=== PATIENT | female | born 1930 | race Caucasian/White ===

== ENCOUNTER 2017-02-12 11:19 | Inpatient (IN) ==
[2017-02-12] MEDS ORDERED: PANTOPRAZOLE 40 MG VIAL IV STA (11:37)
[2017-02-12] MEDS ORDERED: PANTOPRAZOLE 40 MG VIAL IV ONE (11:43)
[2017-02-12 11:44] LABS: Basophils % 0.4 % (0.0-0.8); Eosinophils # 0.1 10*3/uL (0.0-0.87); Eosinophils % 1.1 % (0.00-10.9); Hematocrit 29.2 VOL% (35.7-47.0); Hemoglobin 9.5 GM/DL (12.0-16.0); Immature Granulocytes % 0.4 %; Immature Granulocytes Absolute 0.03 #; Lymphocytes # 1.5 10*3/uL (1.4-4.0); Lymphocytes % 19.6 % (21.3-54.2); Mean Corpuscular HGB Conc 32.5 GM/DL (32-36); Mean Corpuscular Hemoglobin 32 PG (27-34); Mean Corpuscular Volume 97.7 FL (87-102); Monocytes # 0.6 10*3/uL (0.11-0.8); Monocytes % 7.8 % (1.7-12.7); Neutrophils # 5.4 10*3/uL (1.4-7.4); Neutrophils % 70.7 % (38.7-73.9); Platelet Count 160 T/CUMM (130-400); Red Blood Count 2.99 MC/CUMM (3.8-5.5); Red Cell Distribution Width 13.2 % (9.3-17.3); White Blood Count 7.6 T/CUMM (4-12)
[2017-02-12 11:53] LABS: INR 1.1; PT Patient Result 12.1 SECS
[2017-02-12] MEDS ORDERED: ONDANSETRON 4 MG/2 ML VIAL IV STA (11:58)
[2017-02-12] MEDS ORDERED: ONDANSETRON 4 MG/2 ML VIAL ONE ×2 (12:05→13:54)
[2017-02-12 12:21] LABS: Alanine Aminotransferase 16 U/L (13-56); Albumin 3.5 G/DL (3.4-5.0); Alkaline Phosphatase 69 U/L (45-117); Aspartate Amino Transferase 19 U/L (0-37); Bilirubin,Direct < 0.10 MG/DL (0.0-0.20); Bilirubin,Indirect 0.3 MG/DL (0.0-1.0); Bilirubin,Total < 0.39 MG/DL (0.2-1.0); Blood Urea Nitrogen 25 MG/DL (7-18); Calcium 8.2 MG/DL (8.5-10.1); Glucose 114 MG/DL (74-106); Osmolality,Calculated 283.4 MOS/KG (273-304); Potassium 4.4 MMOL/L (3.5-5.1); Sodium 140 MMOL/L (136-145); Total Protein 6.4 G/DL (6.4-8.3)
--- NOTE | 2017-02-12 13:01 | Ultrasound Report ---
History: Left leg swelling Date: 02/12/2017 Study: Left lower extremity color-flow venous Doppler study Comparison exam: May 20, 2016 Color Doppler, wave form analysis, and compression analysis of the deep veins of the left lower extremity from the common femoral vein level through the popliteal vein level shows that the veins are readily compressible. There is no abnormal intraluminal material to suggest thrombus. Waveform analysis is unremarkable. Ultrasound images were captured and archived Impression: Normal left lower extremity color flow venous Doppler study. No evidence of acute DVT on the left PROCEDURE INTERPRETED AT [facility] DEPARTMENT OF RADIOLOGY Final Report Signed by: Dr. Jerri Heller
--- NOTE | 2017-02-12 13:15 | XRay Report ---
History: Vomiting blood. Epigastric pain Date: 02/12/2017 Study: Flat and erect abdomen Comparison exam: No previous similar There is no evidence of pneumoperitoneum. The bowel gas pattern is nonobstructive. Some scattered stool and air are noted in the normal caliber colon. Surgical clips from previous cholecystectomy overlie the right upper abdomen. No definite radiopaque calculus is seen. There is moderate thoracolumbar levoscoliosis. Radiopaque cement from previous kyphoplasty overlies the upper L1 vertebral body. Impression: No acute abdominal process PROCEDURE INTERPRETED AT [facility] DEPARTMENT OF RADIOLOGY Final Report Signed by: Dr. Jerri Heller
--- NOTE | 2017-02-12 13:18 | XRay Report ---
History: Abdominal pain. Nausea, vomiting, diarrhea Date: 02/12/2017 Study: Chest x-ray PA and lateral Comparison exam: August 04, 2009 There is cardiomegaly. There is no mediastinal mass. The pulmonary vasculature is upper normal. There is no pleural effusion. A left subclavian dual-lead transvenous pacemaker is intact and generally stable in position. The lungs are well-expanded to slightly hyperexpanded without acute infiltrate. There is parenchymal and pleural scarring in either lung apex. There is osteopenia and thoracic spondylosis. Impression: The lungs are slightly hyperexpanded as can be seen with COPD. Cardiomegaly without overt CHF. Chronic lung changes otherwise. Pacemaker as before PROCEDURE INTERPRETED AT [facility] DEPARTMENT OF RADIOLOGY Final Report Signed by: Dr. Jerri Heller
[2017-02-12] MEDS ORDERED: ONDANSETRON 4 MG/2 ML VIAL IV PRN (13:50)
[2017-02-12] MEDS ORDERED: ACETAMINOPHEN 325 MG TABLET PO PRN (13:50)
--- NOTE | 2017-02-12 13:50 | Emergency Department Note ---
IMarisel Emily, am scribing for, and in the presence of, Allan Mejia M.D. 12 :00. IJackie Howard T, M.D., personally performed the services described in this documentation, ascribed by Terra Joiner in my presence, and it is both accurate and complete [id number] . Arrival - Arrival Chief Complaint: Nausea/Vomiting/Diarrhea ED Nursing Triage Note: Brought in by EMS c/o vomiting blood that started this morning. Reports vomiting large, bright red clots. Mode of Arrival: Stretcher Limitations: No Limitations Source: Patient - History of Present Illness HPI Narrative: Pt is a 86 y/o female who came to ED with c/o hematemesis that started this morning when getting ready for tenriism. Pt notes "funny feeling" in abdomen and bent over when hematemesis started in gross amounts and had clots. Pt only ate a breakfast bar this morning at 7, and taken medications starting at 4am today. In the past couple weeks, pt has some GERD with choking, but under Dr. Heller which seen years ago not recently. Pt reports last night having mild SOB and swelling LLE. She takes ASA daily. Pt notes having constipation this morning and has hemorrhoids but just eats prunes. 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 Onset (ago): hour(s) Consistency: intermittent Severity: mild, moderate Severity scale (1-10): 4 Quality: other (nauseating) Date of Last Menstrual Period: hysterectomy Allergies/Adverse Reactions: Allergies Allergy/AdvReac Type Severity Reaction Status Date / Time adhesive tape Allergy RASH Verified 02/12/17 11:34 Review of System - Review of System 12 point system: reviewed and no additional remarkable complaints except as stated - Review of System Constitutional: Absent: fever Respiratory: Absent: respiratory distress Cardiovascular: Present: edema (left lower extremity). Absent: chest pain, syncope Gastrointestinal: Present: abdominal pain ("funny feeling"), nausea, constipation (mild this morning), hematemesis. Absent: diarrhea Skin: Absent: rash Neurological: Absent: headache Medical,Surgical,& Family Hx - Medical History Cardio: History of: Hypertension, Pacemaker - Surgical History Reproductive Surgeries: Surgical HX of;: Hysterectomy - Family History Family History: noncontributory - Social History Smoking Status: Never smoker Frequency of Alcohol Use: None Type of Drug Use: None Marital Status: Single Lives With:: Alone Functional capacity: independent ambulation Exam Vital Signs: Vital Signs Temperature 99.8 F H 02/12/17 11:30 Pulse Rate 100 H 02/12/17 13:15 Respiratory Rate 20 02/12/17 13:15 Blood Pressure 137/95 02/12/17 13:15 O2 Sat by Pulse Oximetry 100 02/12/17 13:15 - General General appearance: alert, in no apparent distress - Head Head exam: Present: atraumatic, normocephalic - Eye Eye exam: Present: PERRL, EOMI - ENT ENT exam: Present: mucous membranes moist. Absent: mucous membranes dry - Neck Neck exam: Present: full ROM. Absent: tenderness - Chest Chest inspection: Present: symmetric chest wall rise. Absent: tenderness - Respiratory Respiratory exam: Present: normal lung sounds bilaterally. Absent: respiratory distress - Cardiovascular Cardiovascular exam: Present: regular rate, normal rhythm, normal heart sounds - Abdominal Exam Abdominal exam: Present: soft, normal bowel sounds. Absent: tenderness - Extremities Exam Extremities exam: Present: full ROM, pedal edema (swelling in LLE). Absent: tenderness - Neurological Exam Neurological exam: Present: alert, oriented X3, CN II-XII intact. Absent: motor sensory deficit - Psychiatric Psychiatric exam: Present: normal mood - Skin Skin exam: Present: warm, dry Course Course Narrative: Medical decision making: Discussed with Dr. Alexandra for admission and GI consultation for vomiting blood, patient at this point appears stable no acute distress. Results - Labs CBC & BMP: 02/12/17 11:38 02/12/17 11:38 Lab Results: I have reviewed the patients labs Labs: Laboratory Tests 02/12/17 11:38 WBC 7.6 RBC 2.99 L Hgb 9.5 L Hct 29.2 L Plt Count 160 Lymph % (Auto) 19.6 L Laboratory Tests 02/12/17 11:38 Sodium 140 Potassium 4.4 Chloride 102 Carbon Dioxide 32 BUN 25 H BUN/Creatinine Ratio 31.00 H Glucose 114 H Calcium 8.2 L - Diagnostic Findings Procedure: Abdominal x-ray: report reviewed by me (No acute abdominal process. ) , Chest x-ray: report reviewed by me (The lungs are slightly hyperexpanded as can be seen with COPD. Cardiomegaly without overt CHF. Chronic lungs changes otherwise. Pacemaker as before.), Ultrasound: report reviewed by me (Venous Doppler: Nml LLE color flow venous Doppler study. No evidence of acute DVT on the left.) Disposition Clinical Impression: Upper GI bleed, Hematemesis Case discussed with: patient Disposition: Still a Patient Condition: Stable Time of Disposition: 13:50
[2017-02-12] MEDS ORDERED: SODIUM CHLORIDE 0.45% 1,000 ML IV SCH (14:00)
[2017-02-12] MEDS: FAMOTIDINE 20 MG/2 ML VIAL IV SCH (15:15)
--- NOTE | 2017-02-12 17:59 | Internal Med History&Physical ---
Assessment and Plan (1) Osteoarthritis Status: Chronic Current Visit: Yes Qualifiers: Osteoarthritis location: multiple joints Osteoarthritis type: primary Qualified Code(s): M15.0 - Primary generalized (osteo)arthritis (2) Upper GI bleed Status: Acute Current Visit: Yes (3) Hematemesis Status: Acute Current Visit: Yes Qualifiers: Nausea presence: with nausea Qualified Code(s): K92.0 - Hematemesis; R11.0 - Nausea (4) Hypertension Status: Chronic Current Visit: Yes Qualifiers: Hypertension type: essential hypertension Qualified Code(s): I10 - Essential (primary) hypertension History of Present Illness Chief complaint: acute upper GI bleed/vomiting History of present illness: Ms. Mendiola is a 86 year old female with history of OA, peripheral neuropathy, HTN, hypothyroid, pacemaker placement for bradycardia, who presented to ER with acute upper GI bleed that began this morning. She has been vomiting intermittently since first vomiting blood early today. Volume of vomitus has decreased throughout the day. She denies diarrhea or constipation. Will follow CBCs. Dr. Heller has been consulted for further investigation. She has osteoarthritic pain intermittently and has taken OTC NSAIDs more frequently than she realized. Home Medications Medication Instructions Recorded Confirmed Type Aspirin EC Tab 81 mg PO DAILY 02/12/17 02/12/17 History Atenolol 25 mg PO BID 02/12/17 02/12/17 History Clorazepate Dipotassium 1.875 mg PO BID 02/12/17 02/12/17 History Furosemide Tab [Lasix Tab] 40 mg PO DAILY 02/12/17 02/12/17 History Gabapentin 100 mg PO BID 02/12/17 02/12/17 History Levothyroxine Tab [Synthroid Tab] 88 mcg PO DAILY 02/12/17 02/12/17 History Allergies Allergy/AdvReac Type Severity Reaction Status Date / Time adhesive tape Allergy RASH Verified 02/12/17 11:34 Medical,Surgical,& Family Hx - Medical History Cardio: History of: Hypertension, Pacemaker HEENT: History of: HEENT Problems (chochlear implant) Endocrine: History of: Thyroid Disorder (hypothyroid) Gastrointestinal: History of: GERD Hematology: History of: Anemia (iron deficiency) - Surgical History Abdominal Surgeries: Surgical HX of: Cholecystectomy Reproductive Surgeries: Surgical HX of;: Hysterectomy Orthopedic Surgeries: Surgical HX of;: Spinal Surgery (kyphoplasty) - Family History Family History: Reports;: Family Hypertension - Social History Smoking Status: Never smoker Frequency of Alcohol Use: None Type of Drug Use: None Marital Status: Lives With:: Alone Functional capacity: independent ambulation - Constitutional Constitutional: Absent: fatigue - Cardiovascular Cardiovascular: Absent: chest pain at rest - Respiratory Respiratory: Absent: dyspnea on exertion - Gastrointestinal Gastrointestinal: Present: hematemesis, hematochezia, nausea - Musculoskeletal Musculoskeletal: Present: arthralgias - Psychiatric Psychiatric: Absent: anxiety Exam - Constitutional Vitals: Period Temp Pulse Resp BP Sys/[place] Pulse Ox Last 24 Hr 97.5 F-99.8 F 94-106 16-20 116-162/60-95 94-100 General appearance: no acute distress - Head Head exam: Present: normocephalic - Eye Eye exam: Present: EOMI - Respiratory Respiratory exam: Present: clear to auscultation bilaterally. Absent: rales, rhonchi, wheezes - Cardiovascular Cardiovascular exam: Present: regular rate and rhythm - GI/Abdominal GI/Abdominal exam: Present: normal bowel sounds, soft. Absent: tenderness - Extremities Exam Extremities exam: Present: other (LLE redness and soreness to palpation). Absent: edema - Neurological Exam Neurological exam: Present: alert, oriented X3 - Psychiatric Psychiatric exam: Present: normal affect, normal mood - Skin Skin exam: Present: warm, dry Results - Labs CBC & BMP: 02/12/17 23:16 02/12/17 11:38 - EKG EKG shows: sinus rhythm - Diagnostic Findings Procedure: Abdominal x-ray: image reviewed by me, Chest x-ray: report reviewed by me, image reviewed by me Quality Measures - VTE Contraindication to Pharmacological VTE Prophylaxis: Active Bleeding
[2017-02-12] MEDS: SODIUM CHLORIDE 0.45% 1,000 ML IV SCH (18:50)
[2017-02-12] MEDS ORDERED: PROMETHAZINE 25 MG/1 ML VIAL IM PRN (18:54)
[2017-02-12 23:40] LABS: Hemoglobin 5.5 GM/DL (12.0-16.0)
[2017-02-12 23:41] LABS: Hematocrit 17.1 VOL% (35.7-47.0)
[2017-02-12] MEDS ORDERED: SODIUM CHLORIDE 0.9% 250 ML IV PRN (23:59)
[2017-02-13 00:21] LABS: Hemoglobin 5.7 GM/DL (12.0-16.0)
[2017-02-13 00:22] LABS: Hematocrit 17.6 VOL% (35.7-47.0)
[2017-02-13] MEDS: FAMOTIDINE 20 MG/2 ML VIAL IV SCH (04:02)
[2017-02-13] MEDS: ATENOLOL 25 MG TABLET PO SCH ×4 (04:05→21:30)
[2017-02-13] MEDS: CLORAZEPATE 3.75 MG TABLET PO SCH ×4 (04:05→21:30)
[2017-02-13] MEDS: GABAPENTIN 100 MG CAPSULE PO SCH ×4 (04:05→21:30)
[2017-02-13] MEDS ORDERED: PANTOPRAZOLE 40 MG VIAL IV SCH (09:00)
[2017-02-13] MEDS: cefTRIAXone 1,000 MG in SODIUM CHLORIDE 0.9% 100 ML IV SCH (09:14)
[2017-02-13] MEDS: SODIUM CHLORIDE 0.45% 1,000 ML IV SCH ×2 (09:17→17:55)
[2017-02-13] MEDS: LEVOTHYROXINE 88 MCG TABLET PO SCH ×2 (09:17→14:43)
[2017-02-13 09:26] LABS: Basophils % 0.5 % (0.0-0.8); Eosinophils # 0.1 10*3/uL (0.0-0.87); Eosinophils % 0.8 % (0.00-10.9); Hematocrit 23.5 VOL% (35.7-47.0); Hemoglobin 7.9 GM/DL (12.0-16.0); Immature Granulocytes % 0.4 %; Immature Granulocytes Absolute 0.03 #; Lymphocytes # 2.4 10*3/uL (1.4-4.0); Lymphocytes % 28.2 % (21.3-54.2); Mean Corpuscular HGB Conc 33.6 GM/DL (32-36); Mean Corpuscular Hemoglobin 32 PG (27-34); Mean Corpuscular Volume 93.6 FL (87-102); Mean Platelet Volume 11.1 FL (9.6-12.0); Monocytes # 0.7 10*3/uL (0.11-0.8); Monocytes % 8.8 % (1.7-12.7); Neutrophils # 5.2 10*3/uL (1.4-7.4); Neutrophils % 61.3 % (38.7-73.9); Platelet Count 146 T/CUMM (130-400); Red Blood Count 2.51 MC/CUMM (3.8-5.5); Red Cell Distribution Width 15.2 % (9.3-17.3); White Blood Count 8.4 T/CUMM (4-12)
[2017-02-13 10:00] LABS: Calcium 8.1 MG/DL (8.5-10.1); Osmolality,Calculated 291.8 MOS/KG (273-304); Potassium 4.5 MMOL/L (3.5-5.1)
--- NOTE | 2017-02-13 11:41 | Gastrointestinal Consult Note ---
Assessment and Plan (1) Upper GI bleed Status: Acute Assessment and plan: 02/13-Sudden onset of upper abd pain with hemetemesis followed by reported hematechezia. HH 5/ on admission. No prior hx of GI bleed in past. Prior endoscopy at [facility]. Plan for upper endoscopy today to further revaluate. Further plan and addendum to follow by Dr Heller. Current Visit: Yes History of Present Illness Chief complaint: Hematemesis and hematochezia History of present illness: Ms. Mendiola is a 86 year old female who was admitted to the hospital yesterday after sudden onset of hemetemesis. Pt states she was getting ready to go to sikhism and began not feeling well yesterday morning. She states that she had a pain in her epigastric area and shortly after this began vomiting bright red blood with dark clots. Pt states that she had several episodes of this before coming to the emergency room. She states that the weeks leading up to this event she has noticed she has had an increase in dyspepsia symptoms with belching and bloating as well as indigestion pain. She has also had some increasing dysphagia symptoms. She denies any episodes of nausea or vomiting prior to this. She denies any recent weight loss. States that approximately 3 months ago she hurt her back and was taking some NSAIDs more frequent than usual however she has not taken these in several weeks. She states that she has not noted any changes in her stools until after arrival to the ER yesterday when she had a sudden cramping in her lower abdomen and had a large bright red bloody bowel movement. She states she has had several of these since this time with last one noted last night. She was found on admission to have HH of 11/23 and has been transfused 2 units of PRBC with HH now holding at 01/29. She is also noted to have a BUN/Cr ratio of 45. She has had prior endoscopy done at [facility] by Dr Heller but does not recall a history of PUD in the past. Home Medications Medication Instructions Recorded Confirmed Type Aspirin EC Tab 81 mg PO DAILY 02/12/17 02/12/17 History Atenolol 25 mg PO BID 02/12/17 02/12/17 History Clorazepate Dipotassium 1.875 mg PO BID 02/12/17 02/12/17 History Furosemide Tab [Lasix Tab] 40 mg PO DAILY 02/12/17 02/12/17 History Gabapentin 100 mg PO BID 02/12/17 02/12/17 History Levothyroxine Tab [Synthroid Tab] 88 mcg PO DAILY 02/12/17 02/12/17 History Allergies Allergy/AdvReac Type Severity Reaction Status Date / Time adhesive tape Allergy RASH Verified 02/12/17 11:34 Medical,Surgical,& Family Hx - Medical History Cardio: History of: Hypertension, Pacemaker HEENT: History of: HEENT Problems (chochlear implant) Endocrine: History of: Thyroid Disorder (hypothyroid) Gastrointestinal: History of: GERD Hematology: History of: Anemia (iron deficiency) - Surgical History Abdominal Surgeries: Surgical HX of: Cholecystectomy Reproductive Surgeries: Surgical HX of;: Hysterectomy Orthopedic Surgeries: Surgical HX of;: Spinal Surgery (kyphoplasty) - Family History Family History: Reports;: Family Hypertension - Social History Smoking Status: Never smoker Frequency of Alcohol Use: None Type of Drug Use: None 12 point system: reviewed and no additional remarkable complaints except as stated - Constitutional Constitutional: Present: as per HPI - EENT Eyes: Present: as per HPI Ears: Present: as per HPI Nose, mouth and throat: Present: as per HPI - Cardiovascular Cardiovascular: Present: as per HPI - Respiratory Respiratory: Present: as per HPI - Gastrointestinal Gastrointestinal: Present: as per HPI, abdominal pain, dyspepsia, dysphagia, heartburn, hematemesis, hematochezia, nausea, vomiting - Genitourinary Genitourinary: Present: as per HPI - Musculoskeletal Musculoskeletal: Present: as per HPI - Neurological Neurological: Present: as per HPI - Psychiatric Psychiatric: Present: as per HPI - Endocrine Endocrine: Present: as per HPI - Hematologic/Lymphatic Hematologic/Lymphatic: Present: as per HPI Exam - Constitutional Vitals: Period Temp Pulse Resp BP Sys/[place] Pulse Ox Last 24 Hr 96.9 F-98.8 F 92-110 16-20 96-153/43-95 94-100 General appearance: normal weight, no acute distress - Head Head exam: Present: normal inspection, normocephalic - Eye Eye exam: Present: other (lids and conjunctiva unremarkable). Absent: scleral icterus - ENT ENT exam: Present: normal exam, normal oropharynx - Neck Neck exam: Present: normal inspection - Respiratory Respiratory exam: Present: clear to auscultation bilaterally. Absent: rales, rhonchi, wheezes - Cardiovascular Cardiovascular exam: Present: regular rate and rhythm. Absent: diastolic murmur , JVD, systolic murmur - GI/Abdominal GI/Abdominal exam: Present: normal bowel sounds, soft. Absent: ascites, distended, mass, organomegaly, tenderness - Extremities Exam Extremities exam: Present: normal inspection, full ROM - Back Exam Back exam: Present: normal inspection - Neurological Exam Neurological exam: Present: alert, oriented X3 - Psychiatric Psychiatric exam: Present: normal affect, normal mood - Skin Skin exam: Present: normal color, warm, dry Results - Labs CBC & BMP: 02/13/17 09:00 02/13/17 09:00 Lab Results: I have reviewed the past 24 hour labs Quality Measures - VTE Contraindication to Pharmacological VTE Prophylaxis: Active Bleeding
--- NOTE | 2017-02-13 13:22 | EKG Report ---
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
[2017-02-13] MEDS ORDERED: LIDOCAINE 1% 5 ML VIAL ONE (13:34)
[2017-02-13] MEDS ORDERED: PROPOFOL 200 MG/20 ML VIAL IV ONE (13:34)
--- NOTE | 2017-02-13 13:39 | History and Physical Update ---
History and Physical Update - Physical Exam Mental Status: alert and oriented Heart: other (Irregular/irregular rhythm with tachycardia) Lung: clear to auscultation Abdomen: within normal limits Vitals: within normal limits History and Physical Changes: 86-year-old female presents with upper GI bleeding.
--- NOTE | 2017-02-13 13:53 | Anesthesia Post-Op ---
Anesthesia Post OP - Post Ansesthetic Evaluation Patient seen in post op: Yes Resp: within normal limits CV: within normal limits Mental: within normal limits Temp: within normal limits [id number]: within normal limits Nausea and Vomiting: within normal limits Pain: within normal limits
--- NOTE | 2017-02-13 14:01 | Operative Note ---
Date of procedure: 02/13/17 Pre-op diagnosis: Upper GI bleeding Procedure: Procedure: Esophagogastroduodenoscopy with heater probe coagulation of visible vessel in esophagus Brief clinical abstract: 86-year-old female is admitted after onset of hematemesis this weekend. She has had melena and some hematochezia with this. Patient has required transfusion of 2 units packed red blood cells so far. She states that she has not had evident bleeding overnight. Indication for procedure: Upper GI bleeding Endoscopic findings:[After informed consent was obtained, the patient was placed in the left lateral decubitus position. The gastroscope was inserted in the upper esophagus under direct vision with no resistance encountered. Esophageal mucosa appeared normal down to the midesophagus. Longitudinal ulcers were noted at this level which became confluent/circumferential in the distal 3-4 cm of the esophagus. There was a small protuberance posteriorly 2-3 cm above the squamocolumnar junction that appear to be visible vessel. I coagulated this with heater probe on a setting of 25 W with 2 separate 1 second applications administered. We appeared to have good endoscopic results with this. Squamocolumnar junction was sharply demarcated above a moderate-sized 3- 4 cm hiatal hernia. Stomach was examined including retroflexed view of the cardia and fundus with no other abnormality seen. There was no blood in the stomach. The pyloric channel, duodenal bulb, second and third portion of the duodenum appeared normal. The endoscope was removed and patient appeared to tolerate the procedure well. Impression: #1 severe ulcerative esophagitis with associated visible vessel- appears to be source of bleeding #2 moderate sized hiatal hernia Recommendations: Twice daily PPI therapy. Would watch until Monday at least to ensure no further bleeding. Anesthesia: MAC Surgeon / Physician: Sterling Heller Estimated blood loss: none Specimens: none sent Condition: stable Disposition: post procedure unit Results - Labs CBC & BMP: 02/13/17 09:00 02/13/17 09:00 Discharge Plan - Discharge Medications No Action Clorazepate Dipotassium 1.875 mg PO BID Furosemide Tab [Lasix Tab] 40 mg PO DAILY Atenolol 25 mg PO BID Levothyroxine Tab [Synthroid Tab] 88 mcg PO DAILY Gabapentin 100 mg PO BID Aspirin EC Tab 81 mg PO DAILY - Follow Up or Referral - Forms/Instructions
--- NOTE | 2017-02-13 18:30 | Internal Med Progress Note ---
Assessment and Plan (1) Osteoarthritis Status: Chronic Current Visit: Yes Qualifiers: Osteoarthritis location: multiple joints Osteoarthritis type: primary Qualified Code(s): M15.0 - Primary generalized (osteo)arthritis (2) Upper GI bleed Status: Acute Current Visit: Yes (3) Hematemesis Status: Acute Current Visit: Yes Qualifiers: Nausea presence: with nausea Qualified Code(s): K92.0 - Hematemesis; R11.0 - Nausea (4) Hypertension Status: Chronic Current Visit: Yes Qualifiers: Hypertension type: essential hypertension Qualified Code(s): I10 - Essential (primary) hypertension (5) Ulcerative esophagitis Status: Acute Current Visit: Yes (6) Atrial fibrillation Status: Acute Current Visit: Yes Qualifiers: Atrial fibrillation type: paroxysmal Qualified Code(s): I48.0 - Paroxysmal atrial fibrillation Internal Medicine - PN: Subj Interval history: Ms. Mendiola is a 86 year old female with history of OA, peripheral neuropathy, HTN, hypothyroid, pacemaker placement for bradycardia, who presented to ER with acute upper GI bleed that began this morning. She has been vomiting intermittently since first vomiting blood early today. Volume of vomitus has decreased throughout the day. She denies diarrhea or constipation. Will follow CBCs. Dr. Heller has been consulted for further investigation. She has osteoarthritic pain intermittently and has taken OTC NSAIDs more frequently than she realized. Upper endoscopy revealed ulcerative esophagitis, severe. She will need another 2 units pRBC. She had bleeding again, with bowel movement this evening, but reports less blood than the other day. She went into atrial fibrillation during procedure, but is responding well this evening to beta blockers for rate control. Exam (Progress Note) - Constitutional Vitals: Period Temp Pulse Resp BP Sys/[place] Pulse Ox Last 24 Hr 96.9 F-98.8 F 75-120 16-20 89-147/43-092 93-100 General appearance: no acute distress - Respiratory Respiratory exam: Present: clear to auscultation bilaterally - Cardiovascular Cardiovascular exam: Present: irregular rhythm (atrial fibrillation) - GI/Abdominal GI/Abdominal exam: Present: hyperactive bowel sounds, soft. Absent: tenderness - Extremities Exam Extremities exam: Absent: edema - Neurological Exam Neurological exam: Present: alert, oriented X3 - Psychiatric Psychiatric exam: Present: normal mood - Skin Skin exam: Present: warm, dry Results - Labs CBC & BMP: 02/13/17 09:00 02/13/17 09:00 - EKG EKG shows: atrial fibrillation Quality Measures - VTE Contraindication to Pharmacological VTE Prophylaxis: Active Bleeding
[2017-02-13] MEDS ORDERED: METOPROLOL TARTRATE 50 MG TABLET PO ONE (18:36)
[2017-02-13] MEDS ORDERED: SODIUM CHLORIDE 0.9% 250 ML IV PRN (21:07)
[2017-02-13] MEDS: PANTOPRAZOLE 40 MG VIAL IV SCH (21:30)
[2017-02-13] MEDS: METOPROLOL TARTRATE 50 MG TABLET PO SCH (21:30)
[2017-02-14 06:55] LABS: Basophils # 0.1 10*3/uL (0.0-0.2); Basophils % 0.8 % (0.0-0.8); Eosinophils # 0.2 10*3/uL (0.0-0.87); Eosinophils % 2.7 % (0.00-10.9); Hematocrit 27.2 VOL% (35.7-47.0); Hemoglobin 9.1 GM/DL (12.0-16.0); Immature Granulocytes % 0.5 %; Immature Granulocytes Absolute 0.03 #; Lymphocytes # 1.6 10*3/uL (1.4-4.0); Lymphocytes % 27.7 % (21.3-54.2); Mean Corpuscular HGB Conc 33.5 GM/DL (32-36); Mean Corpuscular Hemoglobin 31 PG (27-34); Mean Corpuscular Volume 92.2 FL (87-102); Mean Platelet Volume 11.2 FL (9.6-12.0); Monocytes # 0.6 10*3/uL (0.11-0.8); Monocytes % 9.6 % (1.7-12.7); Neutrophils # 3.5 10*3/uL (1.4-7.4); Neutrophils % 58.7 % (38.7-73.9); Red Blood Count 2.95 MC/CUMM (3.8-5.5); Red Cell Distribution Width 15.6 % (9.3-17.3); White Blood Count 5.9 T/CUMM (4-12)
[2017-02-14 06:56] LABS: Platelet Count 110 T/CUMM (130-400)
--- NOTE | 2017-02-14 07:28 | EKG Report ---
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
[2017-02-14] MEDS: SODIUM CHLORIDE 0.45% 1,000 ML IV SCH ×2 (09:18→20:05)
[2017-02-14] MEDS: cefTRIAXone 1,000 MG in SODIUM CHLORIDE 0.9% 100 ML IV SCH (09:19)
[2017-02-14] MEDS: PANTOPRAZOLE 40 MG VIAL IV SCH (09:21)
[2017-02-14] MEDS: ATENOLOL 25 MG TABLET PO SCH ×2 (09:24→21:47)
[2017-02-14] MEDS: METOPROLOL TARTRATE 50 MG TABLET PO SCH ×2 (09:24→21:46)
[2017-02-14] MEDS: GABAPENTIN 100 MG CAPSULE PO SCH ×2 (09:24→21:47)
[2017-02-14] MEDS: LEVOTHYROXINE 88 MCG TABLET PO SCH (09:24)
[2017-02-14] MEDS: CLORAZEPATE 3.75 MG TABLET PO SCH ×2 (09:24→21:48)
--- NOTE | 2017-02-14 10:40 | Gastrointestinal Progress Note ---
Assessment and Plan (1) Upper GI bleed Status: Acute Assessment and plan: 02/14-H&H stable at 04/05. Total of 4 units of packed red blood cells. No further active bleeding at this time. EGD findings noted as below. Plan an addendum to followed by Dr. Heller. 02/13-Sudden onset of upper abd pain with hemetemesis followed by reported hematechezia. 11/23 on admission. No prior hx of GI bleed in past. Prior endoscopy at [facility]. Plan for upper endoscopy today to further revaluate. Further plan and addendum to follow by Dr Heller. Current Visit: Yes Gastroenterology - PN: Subj Interval history: CC: GI bleed Patient is seen awake and alert lying in bed. States she had an uneventful night. She denies any father nausea or vomiting episodes. Denies any abdominal pain is tolerating her diet well at this time. She states that she did have a small bowel movement this morning with some slight blood-tinged streaks noted but this is an improvement from initial onset. EGD findings on yesterday noted with ulcerative esophagitis and visible vessel which was treated with a heater probe. H&H is now stable at 04/05. She has had a total of 4 units of packed red blood cells since admission. Abdomen is soft, nontender. ROS: Denies shortness of breath or chest pain Exam (Progress Note) - Constitutional Vitals: Period Temp Pulse Resp BP Sys/[place] Pulse Ox Last 24 Hr 97.1 F-98.3 F 65-120 15-20 89-147/47-092 93-100 - Other Additional findings: General appearance: normal weight, no acute distress - Head Head exam: Present: normal inspection, normocephalic - Eye Eye exam: Present: other (lids and conjunctiva unremarkable). Absent: scleral icterus - ENT ENT exam: Present: normal exam, normal oropharynx - Neck Neck exam: Present: normal inspection - Respiratory Respiratory exam: Present: clear to auscultation bilaterally. Absent: rales, rhonchi, wheezes - Cardiovascular Cardiovascular exam: Present: regular rate and rhythm. Absent: diastolic murmur , JVD, systolic murmur - GI/Abdominal GI/Abdominal exam: Present: normal bowel sounds, soft. Absent: ascites, distended, mass, organomegaly, tenderness - Extremities Exam Extremities exam: Present: normal inspection, full ROM - Back Exam Back exam: Present: normal inspection - Neurological Exam Neurological exam: Present: alert, oriented X3 - Psychiatric Psychiatric exam: Present: normal affect, normal mood - Skin Skin exam: Present: normal color, warm, dry Results - Labs CBC & BMP: 02/14/17 06:18 02/13/17 09:00 Lab Results: I have reviewed the past 24 hour labs
--- NOTE | 2017-02-14 11:42 | Physician Query Form ---
CLICK EDIT DOCUMENT TO SELECT QUERY ANSWER --> OK --> SIGN Brittany Loya RN Clinical Bass Singer W) [phone] (f) [phone] [email or web address] PROVIDERS: Make your selection(s) from the choices in EACH section by typing an "x" and enter comments in the comment section. Please use your independent medical judgment in providing your response. This request does not imply that any particular answer is desired or expected. CLINICAL INDICATORS: (Providers should not edit this section) Pt. admitted with upper GI bleed. EGD showed severe ulcerative esophagitis. Based on lab work of H/H on admission of 11/23. Pt. transfused with 4 units of PRBC's. H/H up to 04/05 after transfusion. Based on the above, could you clarify which of the following conditions you are evaluating, treating, and/or monitoring? ( x) Blood loss anemia ( x) acute ( ) chronic ( ) acute on chronic ( x) Acute blood loss anemia on baseline chronic anemia ( ) Acute blood loss anemia as a complication of a procedure ( ) Iron deficiency anemia not associated with blood loss ( ) Dilutional anemia due to IV fluids ( ) Anemia due to chemotherapy ( ) Anemia due to neoplastic disease ( ) Anemia due to chronic kidney disease ( ) Pernicious anemia ( ) Aplastic anemia ( ) Hemolytic anemia ( ) immune ( ) non-immune - please specify cause: ( ) Anemia due to other condition, please specify: ( ) Clinically unable to determine COMMENTS: PLEASE ALSO DOCUMENT RESPONSE IN PROGRESS NOTES AND/OR DISCHARGE SUMMARY Use of terms such as suspected, likely, or probable (associated with a specific diagnosis that is being evaluated, monitored, or treated as if it exists) are acceptable and can be restated in the discharge summary if not ruled out. MTDD
--- NOTE | 2017-02-14 21:02 | Internal Med Progress Note ---
Assessment and Plan (1) Osteoarthritis Status: Chronic Current Visit: Yes Qualifiers: Osteoarthritis location: multiple joints Osteoarthritis type: primary Qualified Code(s): M15.0 - Primary generalized (osteo)arthritis (2) Upper GI bleed Status: Acute Current Visit: Yes (3) Hematemesis Status: Acute Current Visit: Yes Qualifiers: Nausea presence: with nausea Qualified Code(s): K92.0 - Hematemesis; R11.0 - Nausea (4) Hypertension Status: Chronic Current Visit: Yes Qualifiers: Hypertension type: essential hypertension Qualified Code(s): I10 - Essential (primary) hypertension (5) Ulcerative esophagitis Status: Acute Current Visit: Yes (6) Atrial fibrillation Status: Acute Current Visit: Yes Qualifiers: Atrial fibrillation type: paroxysmal Qualified Code(s): I48.0 - Paroxysmal atrial fibrillation Internal Medicine - PN: Subj Interval history: Ms. Mendiola is a 86 year old female with history of OA, peripheral neuropathy, HTN, hypothyroid, pacemaker placement for bradycardia, who presented to ER with acute upper GI bleed that began this morning. She has been vomiting intermittently since first vomiting blood early today. Volume of vomitus has decreased throughout the day. She denies diarrhea or constipation. Will follow CBCs. Dr. Heller has been consulted for further investigation. She has osteoarthritic pain intermittently and has taken OTC NSAIDs more frequently than she realized. Upper endoscopy revealed ulcerative esophagitis, severe. She will need another 2 units pRBC. She had bleeding again, with bowel movement this evening, but reports less blood than the other day. She went into atrial fibrillation during procedure, but is responding well this evening to beta blockers for rate control. Doing better, but still seeing small amounts of blood. She will stay until free of bleed for 24 hours. Discussed at bedside. Exam (Progress Note) - Constitutional Vitals: Period Temp Pulse Resp BP Sys/[place] Pulse Ox Last 24 Hr 97 F-98.3 F 59-102 15-20 102-139/49-78 95-99 Exam: General appearance: no acute distress - Respiratory Respiratory exam: Present: clear to auscultation bilaterally - Cardiovascular Cardiovascular exam: Present: irregular rhythm (atrial fibrillation) - GI/Abdominal GI/Abdominal exam: Present: hyperactive bowel sounds, soft. Absent: tenderness resolving - Extremities Exam Extremities exam: Absent: edema - Neurological Exam Neurological exam: Present: alert, oriented X3 - Psychiatric Psychiatric exam: Present: normal mood - Skin Skin exam: Present: warm, dry Results - Labs CBC & BMP: 02/14/17 06:18 02/13/17 09:00 Quality Measures - VTE Contraindication to Pharmacological VTE Prophylaxis: Active Bleeding
[2017-02-14] MEDS: PANTOPRAZOLE 40 MG TABLET PO SCH (21:47)
[2017-02-15] MEDS: LEVOTHYROXINE 88 MCG TABLET PO SCH (06:58)
[2017-02-15] MEDS: GABAPENTIN 100 MG CAPSULE PO SCH ×2 (08:06→20:34)
[2017-02-15] MEDS: METOPROLOL TARTRATE 50 MG TABLET PO SCH ×2 (08:07→20:35)
[2017-02-15] MEDS: ATENOLOL 25 MG TABLET PO SCH ×2 (08:07→20:34)
[2017-02-15] MEDS: PANTOPRAZOLE 40 MG TABLET PO SCH ×2 (08:07→20:35)
[2017-02-15] MEDS: CLORAZEPATE 3.75 MG TABLET PO SCH ×2 (08:07→20:35)
[2017-02-15] MEDS: cefTRIAXone 1,000 MG in SODIUM CHLORIDE 0.9% 100 ML IV SCH (08:09)
--- NOTE | 2017-02-15 10:11 | Gastrointestinal Progress Note ---
Assessment and Plan (1) Upper GI bleed Status: Acute Assessment and plan: 02/15-NO overt bleeding. No repeat HH today. Tolerating diet. Will recheck HH today. Plan and addendum to follow by DR Heller. 02/14-H&H stable at 04/05. Total of 4 units of packed red blood cells. No further active bleeding at this time. EGD findings noted as below. Plan an addendum to followed by Dr. Heller. 02/13-Sudden onset of upper abd pain with hemetemesis followed by reported hematechezia. HH 11/23 on admission. No prior hx of GI bleed in past. Prior endoscopy at [facility]. Plan for upper endoscopy today to further revaluate. Further plan and addendum to follow by Dr Heller. Current Visit: Yes Gastroenterology - PN: Subj Interval history: CC: GI bleed Pt is seen, awake and alert, ambulating around room. States she is feeling better today. She states that she has not had a bowel movement today however denies any overt bleeding. She is tolerating her diet well. Abdomen is soft, nontender. HH is stable at 04/05. ROS: Denies SOB or chest pain Exam (Progress Note) - Constitutional Vitals: Period Temp Pulse Resp BP Sys/[place] Pulse Ox Last 24 Hr 96.9 F-99.4 F 56-88 18-22 108-156/49-88 93-99 - Other Additional findings: General appearance: normal weight, no acute distress - Head Head exam: Present: normal inspection, normocephalic - Eye Eye exam: Present: other (lids and conjunctiva unremarkable). Absent: scleral icterus - ENT ENT exam: Present: normal exam, normal oropharynx - Neck Neck exam: Present: normal inspection - Respiratory Respiratory exam: Present: clear to auscultation bilaterally. Absent: rales, rhonchi, wheezes - Cardiovascular Cardiovascular exam: Present: regular rate and rhythm. Absent: diastolic murmur , JVD, systolic murmur - GI/Abdominal GI/Abdominal exam: Present: normal bowel sounds, soft. Absent: ascites, distended, mass, organomegaly, tenderness - Extremities Exam Extremities exam: Present: normal inspection, full ROM - Back Exam Back exam: Present: normal inspection - Neurological Exam Neurological exam: Present: alert, oriented X3 - Psychiatric Psychiatric exam: Present: normal affect, normal mood - Skin Skin exam: Present: normal color, warm, dry Results - Labs CBC & BMP: 02/14/17 06:18 02/13/17 09:00 Lab Results: I have reviewed the past 24 hour labs
[2017-02-15 10:39] LABS: Hematocrit 26.6 VOL% (35.7-47.0); Hemoglobin 8.8 GM/DL (12.0-16.0)
[2017-02-15] MEDS: SODIUM CHLORIDE 0.45% 1,000 ML IV SCH (20:32)
[2017-02-15] MEDS ORDERED: SODIUM CHLORIDE 0.9% 250 ML IV PRN (21:51)
--- NOTE | 2017-02-15 21:56 | Internal Med Progress Note ---
Assessment and Plan (1) Osteoarthritis Status: Chronic Current Visit: Yes Qualifiers: Osteoarthritis location: multiple joints Osteoarthritis type: primary Qualified Code(s): M15.0 - Primary generalized (osteo)arthritis (2) Upper GI bleed Status: Resolved Current Visit: Yes (3) Hematemesis Status: Resolved Current Visit: Yes Qualifiers: Nausea presence: with nausea Qualified Code(s): K92.0 - Hematemesis; R11.0 - Nausea (4) Hypertension Status: Chronic Current Visit: Yes Qualifiers: Hypertension type: essential hypertension Qualified Code(s): I10 - Essential (primary) hypertension (5) Ulcerative esophagitis Status: Acute Current Visit: Yes (6) Atrial fibrillation Status: Acute Current Visit: Yes Qualifiers: Atrial fibrillation type: paroxysmal Qualified Code(s): I48.0 - Paroxysmal atrial fibrillation Internal Medicine - PN: Subj Interval history: Ms. Mendiola is a 86 year old female with history of OA, peripheral neuropathy, HTN, hypothyroid, pacemaker placement for bradycardia, who presented to ER with acute upper GI bleed that began this morning. She has been vomiting intermittently since first vomiting blood early today. Volume of vomitus has decreased throughout the day. She denies diarrhea or constipation. Will follow CBCs. Dr. Heller has been consulted for further investigation. She has osteoarthritic pain intermittently and has taken OTC NSAIDs more frequently than she realized. Upper endoscopy revealed ulcerative esophagitis, severe. She will need another 2 units pRBC. She had bleeding again, with bowel movement this evening, but reports less blood than the other day. She went into atrial fibrillation during procedure, but is responding well this evening to beta blockers for rate control. Doing better, but still seeing small amounts of blood. She will stay until free of bleed for 24 hours. Discussed at bedside. She denies noticing blood at this point, today on Monday, and she will be given one more unit pRBC in transfusion. Can be discharged to home in the morning. Overall, feeling much better. Exam (Progress Note) - Constitutional Vitals: Period Temp Pulse Resp BP Sys/[place] Pulse Ox Last 24 Hr 96.9 F-97.9 F 56-106 18-22 111-156/55-88 93-99 Exam: General appearance: no acute distress - Respiratory Respiratory exam: Present: clear to auscultation bilaterally - Cardiovascular Cardiovascular exam: Present: slightly irregular rhythm (atrial fibrillation); pacemaker - GI/Abdominal GI/Abdominal exam: Present: soft and nontender - Extremities Exam Extremities exam: Absent: edema - Neurological Exam Neurological exam: Present: alert, oriented X3 - Psychiatric Psychiatric exam: Present: normal mood - Skin Skin exam: Present: warm, dry Results - Labs CBC & BMP: 02/15/17 10:30 02/13/17 09:00 Quality Measures - VTE Contraindication to Pharmacological VTE Prophylaxis: Active Bleeding
[2017-02-16] MEDS: SODIUM CHLORIDE 0.45% 1,000 ML IV SCH (05:28)
[2017-02-16] MEDS: LEVOTHYROXINE 88 MCG TABLET PO SCH (07:28)
[2017-02-16 07:45] VITALS: BP 141/86
[2017-02-16] MEDS: METOPROLOL TARTRATE 50 MG TABLET PO SCH (09:00)
[2017-02-16] MEDS: CLORAZEPATE 3.75 MG TABLET PO SCH (09:00)
[2017-02-16] MEDS: cefTRIAXone 1,000 MG in SODIUM CHLORIDE 0.9% 100 ML IV SCH (09:01)
[2017-02-16] MEDS: ATENOLOL 25 MG TABLET PO SCH (09:01)
[2017-02-16] MEDS: PANTOPRAZOLE 40 MG TABLET PO SCH (09:01)
[2017-02-16] MEDS: GABAPENTIN 100 MG CAPSULE PO SCH (09:01)
--- NOTE | 2017-02-16 09:04 | Discharge Summary ---
Hospital Course - Hospital Course Hospital Course: Ms. Mendiola is a 86 year old female with history of OA, peripheral neuropathy, HTN, hypothyroid, pacemaker placement for bradycardia, who presented to ER with acute upper GI bleed that began this morning. She has been vomiting intermittently since first vomiting blood early today. Volume of vomitus has decreased throughout the day. She denies diarrhea or constipation. Will follow CBCs. Dr. Heller has been consulted for further investigation. She has osteoarthritic pain intermittently and has taken OTC NSAIDs more frequently than she realized. Upper endoscopy revealed ulcerative esophagitis, severe. She will need another 2 units pRBC. She had bleeding again, with bowel movement this evening, but reports less blood than the other day. She went into atrial fibrillation during procedure, but is responding well this evening to beta blockers for rate control. She denies noticing blood at this point, and she will be given one more unit pRBC in transfusion. Can be discharged to home. Overall, feeling much better. Diagnosis - Discharge Diagnosis (1) Osteoarthritis Status: Chronic (2) Upper GI bleed Status: Resolved (3) Hematemesis Status: Resolved (4) Hypertension Status: Chronic (5) Ulcerative esophagitis Status: Acute (6) Atrial fibrillation Status: Acute Discharge Plan - Discharge Data Disposition: Disch To Home/Self Care Condition at Discharge: Stable Discharge Diet: regular diet Activity: resume usual activities as tolerated, increase activity as tolerated - Discharge Medications New Pantoprazole Tab [Protonix Tab] 40 mg PO BID #60 tablet Acetaminophen Tab [Tylenol Tab] 500 mg PO BID W/MEALS #60 tablet Metoprolol Tartrate Tab [Lopressor Tab] 50 mg PO BID #60 tablet Continue Clorazepate Dipotassium 1.875 mg PO BID Atenolol 25 mg PO BID Levothyroxine Tab [Synthroid Tab] 88 mcg PO DAILY Gabapentin 100 mg PO BID Discontinued Furosemide Tab [Lasix Tab] 40 mg PO DAILY Aspirin EC Tab 81 mg PO DAILY - Follow Up or Referral Follow Up: Dee Alexandra DO [Physician] - Sterling Heller MD [Physician] - - Forms/Instructions Additional Discharge Instructions: Follow up with Dr. Zuhair Alexandra within 1-2 weeks at clinic. Repeat CBC at that time. Follow up with Dr. Heller within 4 -6 weeks at clinic for esophageal ulcerations. Exam - Constitutional Vitals: Period Temp Pulse Resp BP Sys/[place] Pulse Ox Last 24 Hr 96.7 F-98 F 62-106 18-20 124-144/55-86 93-99 Exam: General appearance: no acute distress - Respiratory Respiratory exam: Present: clear to auscultation bilaterally - Cardiovascular Cardiovascular exam: Present: slightly irregular rhythm (atrial fibrillation); pacemaker - GI/Abdominal GI/Abdominal exam: Present: soft and nontender - Extremities Exam Extremities exam: Absent: edema - Neurological Exam Neurological exam: Present: alert, oriented X3 - Psychiatric Psychiatric exam: Present: normal mood - Skin Skin exam: Present: warm, dry Discharge Results Procedures and tests throughout hospitalization: Pending Orders 02/15/17 Red Blood Cells Leuko Red Routine Type and Screen Routine Labs on day of discharge: Labs from last 24 hours 02/16/17 02/15/17 02/15/17 07:32 Unknown 10:30 Hgb 10.0 L 8.8 L Hct 30.0 L 26.6 L Blood Type A POSITIVE Antibody Screen Negative Crossmatch See Detail Blood Bank Comment Cancelled 02/13/17 Unknown Hgb Hct Blood Type Cancelled Antibody Screen Cancelled Crossmatch Blood Bank Comment Cancelled DS: Provider Date of admission: 02/12/17 13:50 Primary care physician: . No PCP Attending physician on admission: Dee Alexandra DO Consults: 02/12/17 13:50 Consult to Case Mgmt/Social Srvs [CONS] Routine Reason for Case Mgmt/Social Srvs: Discharge Planning 02/12/17 13:51 Consult to Physician [CONS] Routine Comment: Consulting Provider: Sterling Heller Discharging clinician: Dee Alexandra DO Expected date of discharge: 02/16/17
== END 2017-02-16 11:10 | disposition home or self-care (01) | DRG 381 ==
LOC: EDUNIT# → EDBD → N.ED 11:19 → N.EDINP 13:50 → N.2E 15:11
PROVIDERS: ADMIT Internal Medicine; ATTEND Internal Medicine

== ENCOUNTER 2017-11-20 12:28 | Observation (INO) ==
[2017-11-20] MEDS ORDERED: ASPIRIN 325 MG TABLET PO STA ×2 (12:41→13:07)
[2017-11-20] MEDS ORDERED: ONDANSETRON 4 MG/2 ML VIAL IV PRN ×2 (12:41→17:52)
[2017-11-20] MEDS ORDERED: ALBUTEROL/IPRATROPIUM 3 ML NEB RESP TX STA (13:07)
[2017-11-20] MEDS ORDERED: ONDANSETRON 4 MG/2 ML VIAL IV STA (13:07)
[2017-11-20] MEDS ORDERED: FUROSEMIDE 100 MG/10 ML VIAL IV STA (13:07)
[2017-11-20 13:46] LABS: Basophils % 0.6 % (0.0-0.8); Eosinophils # 0.1 10*3/uL (0.0-0.87); Eosinophils % 1.2 % (0.00-10.9); Hematocrit 31.5 VOL% (35.7-47.0); Hemoglobin 10.4 GM/DL (12.0-16.0); Immature Granulocytes % 0.4 %; Immature Granulocytes Absolute 0.02 #; Lymphocytes # 0.8 10*3/uL (1.4-4.0); Lymphocytes % 15.4 % (21.3-54.2); Mean Corpuscular Hemoglobin 33 PG (27-34); Mean Corpuscular Volume 98.7 FL (87-102); Mean Platelet Volume 10.9 FL (9.6-12.0); Monocytes # 0.5 10*3/uL (0.11-0.8); Neutrophils # 3.5 10*3/uL (1.4-7.4); Neutrophils % 72.4 % (38.7-73.9); Platelet Count 134 T/CUMM (130-400); Red Blood Count 3.19 MC/CUMM (3.8-5.5); Red Cell Distribution Width 14.2 % (9.3-17.3); White Blood Count 4.9 T/CUMM (4-12)
[2017-11-20 13:57] LABS: INR 1.2; PT Patient Result 12.7 SECS
[2017-11-20 14:13] LABS: Alanine Aminotransferase 25 U/L (13-56); Albumin 3.6 G/DL (3.4-5.0); Alkaline Phosphatase 108 U/L (45-117); Aspartate Amino Transferase 33 U/L (0-37); Blood Urea Nitrogen 14 MG/DL (7-18); Calcium 8.9 MG/DL (8.5-10.1); Glucose 86 MG/DL (74-106); Macrocytosis 1+; Osmolality,Calculated 265.4 MOS/KG (273-304); Potassium 4.5 MMOL/L (3.5-5.1); Sodium 133 MMOL/L (136-145); Total Protein 7.1 G/DL (6.4-8.3); Troponin I Only < 0.015 NG/ML (0.00-0.045)
[2017-11-20 14:15] LABS: Hypochromasia Slight; Platelet Estimate Decreased
[2017-11-20 14:34] LABS: Apearance,Urine CLEAR (Clear); Bilirubin,Urine Negative (Negative); Blood, Urine Moderate mg/dL (Negative); Glucose,Urine (UA) Negative (Negative); Ketones,Urine Negative (Negative); Mucus,Urine Occasional /LPF (Occasional); Nitrite,Urine Negative (Negative); Protein,Urine 100 MG/DL; RBC,Urine 4 /HPF (0-4); Squamous Epithelial Cell,Urine Occasional /HPF (0-10); Urine Color Straw (Yellow); Urine Specific Gravity 1.004 (1.001-1.035); Urine Urobilinogen < 2.0 EU/DL (0.2-1.0); WBC,Urine <1 /HPF (0-6)
[2017-11-20] MEDS ORDERED: ACETAMINOPHEN 325 MG TABLET PO PRN (17:52)
[2017-11-20] MEDS ORDERED: SODIUM CHLORIDE 0.9% 1,000 ML IV SCH (17:52)
[2017-11-20] MEDS ORDERED: MORPHINE 4 MG/1 ML VIAL IV PRN (17:52)
[2017-11-20] MEDS ORDERED: ALBUTEROL/IPRATROPIUM 3 ML NEB RESP TX PRN (17:52)
[2017-11-20] MEDS ORDERED: CLORAZEPATE 3.75 MG TABLET PO PRN (19:20)
[2017-11-20] MEDS: ATENOLOL 50 MG TABLET PO SCH (21:10)
[2017-11-20] MEDS: DOCUSATE SODIUM 100 MG CAPSULE PO SCH (21:46)
[2017-11-20] MEDS ORDERED: CLINDAMYCIN 300 MG CAPSULE PO SCH (22:00)
[2017-11-21 05:12] LABS: Basophils % 1.1 % (0.0-0.8); Eosinophils # 0.1 10*3/uL (0.0-0.87); Eosinophils % 2.1 % (0.00-10.9); Hematocrit 31.1 VOL% (35.7-47.0); Hemoglobin 10.3 GM/DL (12.0-16.0); Immature Granulocytes % 0.3 %; Immature Granulocytes Absolute 0.01 #; Lymphocytes # 0.9 10*3/uL (1.4-4.0); Lymphocytes % 22.4 % (21.3-54.2); Mean Corpuscular HGB Conc 33.1 GM/DL (32-36); Mean Corpuscular Hemoglobin 33 PG (27-34); Mean Corpuscular Volume 98.1 FL (87-102); Mean Platelet Volume 10.2 FL (9.6-12.0); Monocytes # 0.5 10*3/uL (0.11-0.8); Monocytes % 12.4 % (1.7-12.7); Neutrophils # 2.3 10*3/uL (1.4-7.4); Neutrophils % 61.7 % (38.7-73.9); Platelet Count 122 T/CUMM (130-400); Red Blood Count 3.17 MC/CUMM (3.8-5.5); Red Cell Distribution Width 14.6 % (9.3-17.3); White Blood Count 3.8 T/CUMM (4-12)
[2017-11-21 05:37] LABS: Calcium 8.9 MG/DL (8.5-10.1)
[2017-11-21 05:42] LABS: Albumin 3.2 G/DL (3.4-5.0); Bilirubin,Total 1.6 MG/DL (0.2-1.0); Osmolality,Calculated 273.8 MOS/KG (273-304); Risk Ratio 1.61; Total Protein 6.4 G/DL (6.4-8.3); VLDL CHOLESTEROL 8.4 MG/DL
[2017-11-21] MEDS ORDERED: CLINDAMYCIN PO SCH (06:00)
[2017-11-21] MEDS ORDERED: LEVOTHYROXINE 88 MCG TABLET PO SCH (06:30)
[2017-11-21 07:48] VITALS: BP 158/68
[2017-11-21] MEDS ORDERED: FUROSEMIDE 20 MG/2 ML VIAL IV SCH (08:00)
[2017-11-21] MEDS ORDERED: PANTOPRAZOLE 40 MG TABLET PO SCH (09:00)
[2017-11-21] MEDS ORDERED: GABAPENTIN 100 MG CAPSULE PO SCH (09:00)
[2017-11-21] MEDS ORDERED: ASPIRIN EC 81 MG TABLET PO SCH (09:00)
[2017-11-21] MEDS: ATENOLOL 50 MG TABLET PO SCH (09:15)
[2017-11-21] MEDS: DOCUSATE SODIUM 100 MG CAPSULE PO SCH (09:15)
== END 2017-11-21 10:45 | disposition home or self-care (01) ==
LOC: N.EDINP 12:28 → N.ED 12:28 → N.4E 16:52
PROVIDERS: ADMIT Internal Medicine; ATTEND Internal Medicine

== ENCOUNTER 2018-02-15 11:26 | Inpatient (IN) ==
[2018-02-15] MEDS ORDERED: FUROSEMIDE 100 MG/10 ML VIAL IV STA (12:26)
[2018-02-15 12:55] LABS: Basophils % 0.2 % (0.0-0.8); Eosinophils % 0.4 % (0.00-10.9); Hematocrit 32.3 VOL% (35.7-47.0); Hemoglobin 11.1 GM/DL (12.0-16.0); Lymphocytes # 0.5 10*3/uL (1.4-4.0); Lymphocytes % 10.8 % (21.3-54.2); Mean Corpuscular HGB Conc 34.4 GM/DL (32-36); Mean Corpuscular Hemoglobin 34 PG (27-34); Mean Corpuscular Volume 97.6 FL (87-102); Mean Platelet Volume 10.3 FL (9.6-12.0); Monocytes # 0.5 10*3/uL (0.11-0.8); Monocytes % 10.5 % (1.7-12.7); Neutrophils # 3.9 10*3/uL (1.4-7.4); Neutrophils % 78.1 % (38.7-73.9); Platelet Count 116 T/CUMM (130-400); Red Blood Count 3.31 MC/CUMM (3.8-5.5); Red Cell Distribution Width 13.6 % (9.3-17.3); White Blood Count 4.9 T/CUMM (4-12)
[2018-02-15 13:15] LABS: Apearance,Urine CLEAR (Clear); Bilirubin,Urine Negative (Negative); Blood, Urine Large mg/dL (Negative); Calcium Oxalate Crystals,Urine Occasional /HPF (Few); Glucose,Urine (UA) Negative (Negative); Ketones,Urine Negative (Negative); Nitrite,Urine Negative (Negative); Protein,Urine Negative; RBC,Urine 22 /HPF (0-4); Urine Color Yellow (Yellow); Urine Specific Gravity 1.005 (1.001-1.035); Urine Urobilinogen < 2.0 EU/DL (0.2-1.0); WBC,Urine <1 /HPF (0-6)
[2018-02-15 13:16] LABS: Alanine Aminotransferase 21 U/L (13-56); Alkaline Phosphatase 111 U/L (45-117); Aspartate Amino Transferase 30 U/L (0-37); Blood Urea Nitrogen 13 MG/DL (7-18); Calcium 8.4 MG/DL (8.5-10.1); Glucose 113 MG/DL (74-106); Osmolality,Calculated 251.5 MOS/KG (273-304); Potassium 4.1 MMOL/L (3.5-5.1); Sodium 125 MMOL/L (136-145); Total Protein 7.6 G/DL (6.4-8.3)
[2018-02-15] MEDS ORDERED: SODIUM CHLORIDE 0.9% 1,000 ML IV SCH (15:06)
[2018-02-15] MEDS ORDERED: ONDANSETRON 4 MG/2 ML VIAL IV PRN (15:06)
[2018-02-15] MEDS ORDERED: PANTOPRAZOLE 40 MG TABLET PO ONE ×2 (20:39→22:03)
[2018-02-15] MEDS ORDERED: ACETAMINOPHEN 325 MG TABLET PO PRN (21:09)
[2018-02-15] MEDS ORDERED: NITROGLYCERIN SL 0.4 MG TABLET SL PRN (21:09)
[2018-02-15] MEDS: PANTOPRAZOLE 40 MG TABLET PO SCH (21:50)
[2018-02-15] MEDS: DOCUSATE SODIUM 100 MG CAPSULE PO SCH (21:50)
[2018-02-15] MEDS: SERTRALINE 25 MG TABLET PO SCH (21:50)
[2018-02-16] MEDS: LEVOTHYROXINE 88 MCG TABLET PO SCH (06:39)
[2018-02-16] MEDS ORDERED: FUROSEMIDE 40 MG TABLET PO SCH (08:00)
[2018-02-16 09:16] LABS: Calcium 8.4 MG/DL (8.5-10.1); Osmolality,Calculated 255.1 MOS/KG (273-304); Potassium 3.6 MMOL/L (3.5-5.1)
[2018-02-16 10:10] LABS: Free T4 (Free Thyroxine) 1.52 NG/DL (0.76-1.46); Thyroid Stimulating Hormone 2.08 uIU/ml (0.358-3.74)
[2018-02-16] MEDS: ASPIRIN EC 81 MG TABLET PO SCH (10:35)
[2018-02-16] MEDS: MULTIVITAMIN (CENTRUM) TABLET PO SCH (10:35)
[2018-02-16] MEDS: CALCIUM (CARBONATE)/VITAMIN D 600 MG-400 UNIT TABLET PO SCH (10:35)
[2018-02-16] MEDS: PREGABALIN 25 MG CAPSULE PO SCH ×2 (10:35→21:21)
[2018-02-16] MEDS: DOCUSATE SODIUM 100 MG CAPSULE PO SCH ×2 (10:36→21:16)
[2018-02-16] MEDS: FUROSEMIDE 40 MG/4 ML VIAL IV SCH (10:36)
[2018-02-16] MEDS: ATENOLOL 50 MG TABLET PO SCH ×2 (10:36→21:16)
[2018-02-16] MEDS: PANTOPRAZOLE 40 MG TABLET PO SCH (10:36)
[2018-02-16] MEDS: LOSARTAN 25 MG TABLET PO SCH ×2 (10:46→21:16)
[2018-02-16] MEDS ORDERED: hydrALAZINE 20 MG/1 ML VIAL IM PRN (13:24)
[2018-02-16] MEDS ORDERED: hydrALAZINE 20 MG/1 ML VIAL IV PRN (13:47)
[2018-02-16] MEDS: SERTRALINE 25 MG TABLET PO SCH (21:16)
[2018-02-16] MEDS ORDERED: PANTOPRAZOLE 40 MG TABLET PO ONE (21:20)
[2018-02-16] MEDS ORDERED: POTASSIUM CHLORIDE 20 MEQ TABLET PO ONE (21:37)
[2018-02-16] MEDS: ACETAMINOPHEN 500 MG TABLET PO SCH (22:58)
[2018-02-16] MEDS ORDERED: LOSARTAN 25 MG TABLET PO SCH (23:26)
[2018-02-17 04:06] LABS: Basophils % 0.2 % (0.0-0.8); Eosinophils # 0.1 10*3/uL (0.0-0.87); Hematocrit 28.7 VOL% (35.7-47.0); Immature Granulocytes % 0.2 %; Immature Granulocytes Absolute 0.01 #; Lymphocytes # 0.5 10*3/uL (1.4-4.0); Lymphocytes % 10.4 % (21.3-54.2); Mean Corpuscular HGB Conc 34.8 GM/DL (32-36); Mean Corpuscular Hemoglobin 34 PG (27-34); Mean Corpuscular Volume 97.3 FL (87-102); Mean Platelet Volume 10.1 FL (9.6-12.0); Monocytes # 0.5 10*3/uL (0.11-0.8); Monocytes % 10.8 % (1.7-12.7); Neutrophils # 3.9 10*3/uL (1.4-7.4); Neutrophils % 77.4 % (38.7-73.9); Platelet Count 100 T/CUMM (130-400); Red Blood Count 2.95 MC/CUMM (3.8-5.5); Red Cell Distribution Width 13.5 % (9.3-17.3)
[2018-02-17 04:54] LABS: Calcium 8.4 MG/DL (8.5-10.1); Osmolality,Calculated 250.5 MOS/KG (273-304); Potassium 3.6 MMOL/L (3.5-5.1)
[2018-02-17] MEDS: LEVOTHYROXINE 88 MCG TABLET PO SCH (06:19)
[2018-02-17] MEDS: CALCIUM (CARBONATE)/VITAMIN D 600 MG-400 UNIT TABLET PO SCH (08:34)
[2018-02-17] MEDS: ATENOLOL 50 MG TABLET PO SCH (08:34)
[2018-02-17] MEDS: PANTOPRAZOLE 40 MG TABLET PO SCH (08:34)
[2018-02-17] MEDS: DOCUSATE SODIUM 100 MG CAPSULE PO SCH (08:34)
[2018-02-17] MEDS: MULTIVITAMIN (CENTRUM) TABLET PO SCH (08:34)
[2018-02-17] MEDS: ASPIRIN EC 81 MG TABLET PO SCH (08:34)
[2018-02-17] MEDS: FUROSEMIDE 40 MG/4 ML VIAL IV SCH (08:35)
[2018-02-17] MEDS: ACETAMINOPHEN 500 MG TABLET PO SCH (08:36)
[2018-02-17] MEDS ORDERED: POTASSIUM CHLORIDE 20 MEQ TABLET PO SCH (09:00)
[2018-02-17] MEDS ORDERED: DILTIAZEM CD 120 MG CAPSULE PO SCH (12:00)
[2018-02-17 12:42] VITALS: BP 174/86
[2018-02-17] MEDS ORDERED: FUROSEMIDE 40 MG/4 ML VIAL IV SCH (21:00)
== END 2018-02-17 16:49 | disposition home or self-care (01) | DRG 293 ==
LOC: N.ED 11:26 → N.EDINP 11:26 → N.2W 14:50 → N.TELES 16:05
PROVIDERS: ADMIT Internal Medicine; ATTEND Internal Medicine

== ENCOUNTER 2018-02-23 09:45 | Inpatient (IN) ==
[2018-02-23] MEDS ORDERED: LACTATED RINGERS 1,000 ML IV SCH (10:30)
[2018-02-23] MEDS ORDERED: ALBUTEROL/IPRATROPIUM 3 ML NEB RESP TX ONE (11:20)
[2018-02-23] MEDS ORDERED: FUROSEMIDE 40 MG/4 ML VIAL IV ONE (11:20)
[2018-02-23 12:50] LABS: Albumin 3.6 G/DL (3.4-5.0); Bilirubin,Total 1.2 MG/DL (0.2-1.0); Calcium 8.4 MG/DL (8.5-10.1); Osmolality,Calculated 221.6 MOS/KG (273-304); Potassium 3.9 MMOL/L (3.5-5.1); Total Protein 6.9 G/DL (6.4-8.3)
[2018-02-23] MEDS ORDERED: ONDANSETRON 4 MG/2 ML VIAL IV PRN (14:54)
[2018-02-23] MEDS ORDERED: traMADol 50 MG TABLET PO PRN (14:55)
[2018-02-23] MEDS ORDERED: BISACODYL 5 MG TABLET PO PRN (14:55)
[2018-02-23] MEDS ORDERED: MAGNESIUM HYDROXIDE SUSP 30 ML UDCUP PO PRN (14:55)
[2018-02-23] MEDS ORDERED: NITROGLYCERIN SL 0.4 MG TABLET SL PRN (15:04)
[2018-02-23 15:29] LABS: Apearance,Urine CLEAR (Clear); Bilirubin,Urine Negative (Negative); Blood, Urine Large mg/dL (Negative); Glucose,Urine (UA) Negative (Negative); Ketones,Urine Negative (Negative); Nitrite,Urine Negative (Negative); Protein,Urine Negative; RBC,Urine 20 /HPF (0-4); Squamous Epithelial Cell,Urine Occasional /HPF (0-10); Urine Color Straw (Yellow); Urine Specific Gravity 1.003 (1.001-1.035); Urine Urobilinogen < 2.0 EU/DL (0.2-1.0); WBC,Urine 6 /HPF (0-6)
[2018-02-23] MEDS: FUROSEMIDE 40 MG/4 ML VIAL IV SCH (16:24)
[2018-02-23] MEDS: SODIUM CHLORIDE 0.9% 1,000 ML IV SCH (16:24)
[2018-02-23] MEDS: NYSTATIN 500,000 UNIT/5 ML UDCUP SWISH/SWAL SCH ×2 (16:27→21:04)
[2018-02-23] MEDS: ENOXAPARIN 30 MG/0.3 ML SYRINGE SUBCUT SCH ×2 (16:28→16:29)
[2018-02-23] MEDS: DOCUSATE SODIUM 100 MG CAPSULE PO SCH (20:59)
[2018-02-23] MEDS: QUEtiapine 25 MG TABLET PO SCH (21:00)
[2018-02-23] MEDS: ATENOLOL 50 MG TABLET PO SCH (21:00)
[2018-02-23] MEDS: GABAPENTIN 100 MG CAPSULE PO SCH (21:01)
[2018-02-23] MEDS: FAMOTIDINE 20 MG TABLET PO SCH (21:01)
[2018-02-23] MEDS ORDERED: MAGNESIUM SULF RIDER 2 GM in PREMIX 1 EACH IV ONE (23:30)
[2018-02-24 04:16] LABS: Basophils % 0.2 % (0.0-0.8); Eosinophils % 0.8 % (0.00-10.9); Hematocrit 29.9 VOL% (35.7-47.0); Hemoglobin 10.7 GM/DL (12.0-16.0); Immature Granulocytes % 0.4 %; Immature Granulocytes Absolute 0.02 #; Lymphocytes # 0.5 10*3/uL (1.4-4.0); Lymphocytes % 10.4 % (21.3-54.2); Mean Corpuscular HGB Conc 35.8 GM/DL (32-36); Mean Corpuscular Hemoglobin 33 PG (27-34); Mean Corpuscular Volume 91.4 FL (87-102); Mean Platelet Volume 9.5 FL (9.6-12.0); Monocytes # 0.5 10*3/uL (0.11-0.8); Neutrophils % 78.2 % (38.7-73.9); Platelet Count 129 T/CUMM (130-400); Red Blood Count 3.27 MC/CUMM (3.8-5.5); Red Cell Distribution Width 12.6 % (9.3-17.3); White Blood Count 5.1 T/CUMM (4-12)
[2018-02-24 04:51] LABS: Albumin 3.1 G/DL (3.4-5.0); Bilirubin,Total 1.3 MG/DL (0.2-1.0); Calcium 7.9 MG/DL (8.5-10.1); Osmolality,Calculated 226.2 MOS/KG (273-304); Potassium 3.1 MMOL/L (3.5-5.1)
[2018-02-24] MEDS: SODIUM CHLORIDE 0.9% 1,000 ML IV SCH (05:50)
[2018-02-24] MEDS: DOCUSATE SODIUM 100 MG CAPSULE PO SCH ×2 (08:23→21:38)
[2018-02-24] MEDS: FAMOTIDINE 20 MG TABLET PO SCH ×2 (08:23→21:39)
[2018-02-24] MEDS: DOXAZOSIN 1 MG TABLET PO SCH (08:23)
[2018-02-24] MEDS: POTASSIUM CHLORIDE 20 MEQ TABLET PO SCH (08:23)
[2018-02-24] MEDS: NYSTATIN 500,000 UNIT/5 ML UDCUP SWISH/SWAL SCH ×4 (08:24→21:38)
[2018-02-24] MEDS: ATENOLOL 50 MG TABLET PO SCH ×2 (08:24→21:38)
[2018-02-24] MEDS: FUROSEMIDE 40 MG/4 ML VIAL IV SCH ×2 (08:24→16:26)
[2018-02-24] MEDS: ASPIRIN EC 81 MG TABLET PO SCH (08:24)
[2018-02-24] MEDS: CALCIUM (CARBONATE)/VITAMIN D 600 MG-400 UNIT TABLET PO SCH (08:24)
[2018-02-24] MEDS: ENOXAPARIN 30 MG/0.3 ML SYRINGE SUBCUT SCH (16:30)
[2018-02-24] MEDS: GABAPENTIN 100 MG CAPSULE PO SCH (21:38)
[2018-02-24] MEDS: QUEtiapine 25 MG TABLET PO SCH (21:38)
[2018-02-24] MEDS: CIPROFLOXACIN/DEXAMETHASONE OTIC SUSP 7.5 ML BOTTLE RIGHT EAR SCH (21:39)
[2018-02-25] MEDS: ATENOLOL 50 MG TABLET PO SCH ×2 (08:30→20:32)
[2018-02-25] MEDS: ASPIRIN EC 81 MG TABLET PO SCH (08:30)
[2018-02-25] MEDS: CALCIUM (CARBONATE)/VITAMIN D 600 MG-400 UNIT TABLET PO SCH (08:30)
[2018-02-25] MEDS: FAMOTIDINE 20 MG TABLET PO SCH ×2 (08:30→20:32)
[2018-02-25] MEDS: POTASSIUM CHLORIDE 20 MEQ TABLET PO SCH (08:30)
[2018-02-25] MEDS: NYSTATIN 500,000 UNIT/5 ML UDCUP SWISH/SWAL SCH ×4 (08:31→20:33)
[2018-02-25] MEDS: FUROSEMIDE 40 MG/4 ML VIAL IV SCH (08:31)
[2018-02-25] MEDS: DOXAZOSIN 1 MG TABLET PO SCH (08:35)
[2018-02-25] MEDS: CIPROFLOXACIN/DEXAMETHASONE OTIC SUSP 7.5 ML BOTTLE RIGHT EAR SCH ×2 (08:35→20:33)
[2018-02-25] MEDS: DOCUSATE SODIUM 100 MG CAPSULE PO SCH ×2 (08:36→20:32)
[2018-02-25 09:22] LABS: Calcium 8.2 MG/DL (8.5-10.1); Osmolality,Calculated 232.9 MOS/KG (273-304); Potassium 3.3 MMOL/L (3.5-5.1)
[2018-02-25] MEDS ORDERED: POTASSIUM CHLORIDE 20 MEQ TABLET PO ONE (09:40)
[2018-02-25] MEDS: ENOXAPARIN 30 MG/0.3 ML SYRINGE SUBCUT SCH (16:12)
[2018-02-25] MEDS: QUEtiapine 25 MG TABLET PO SCH (20:32)
[2018-02-25] MEDS: GABAPENTIN 100 MG CAPSULE PO SCH (20:32)
[2018-02-25] MEDS ORDERED: DEXTROSE 5% 1,000 ML IV SCH (21:00)
[2018-02-26 00:50] LABS: Basophils % 0.5 % (0.0-0.8); Eosinophils % 0.7 % (0.00-10.9); Hematocrit 28.9 VOL% (35.7-47.0); Hemoglobin 10.5 GM/DL (12.0-16.0); Immature Granulocytes % 0.7 %; Immature Granulocytes Absolute 0.03 #; Lymphocytes # 0.6 10*3/uL (1.4-4.0); Lymphocytes % 12.8 % (21.3-54.2); Mean Corpuscular HGB Conc 36.3 GM/DL (32-36); Mean Corpuscular Hemoglobin 34 PG (27-34); Mean Corpuscular Volume 92.6 FL (87-102); Mean Platelet Volume 9.7 FL (9.6-12.0); Monocytes # 0.5 10*3/uL (0.11-0.8); Monocytes % 11.5 % (1.7-12.7); Neutrophils # 3.3 10*3/uL (1.4-7.4); Neutrophils % 73.8 % (38.7-73.9); Platelet Count 119 T/CUMM (130-400); Red Blood Count 3.12 MC/CUMM (3.8-5.5); Red Cell Distribution Width 13.3 % (9.3-17.3); White Blood Count 4.4 T/CUMM (4-12)
[2018-02-26 01:02] LABS: Albumin 3.2 G/DL (3.4-5.0); Bilirubin,Total 0.7 MG/DL (0.2-1.0); Calcium 7.7 MG/DL (8.5-10.1); Osmolality,Calculated 254.2 MOS/KG (273-304); Potassium 3.8 MMOL/L (3.5-5.1); Total Protein 5.9 G/DL (6.4-8.3)
[2018-02-26] MEDS: NYSTATIN 500,000 UNIT/5 ML UDCUP SWISH/SWAL SCH ×4 (09:39→22:08)
[2018-02-26] MEDS: CALCIUM (CARBONATE)/VITAMIN D 600 MG-400 UNIT TABLET PO SCH (09:39)
[2018-02-26] MEDS: ATENOLOL 50 MG TABLET PO SCH ×2 (09:40→22:08)
[2018-02-26] MEDS: FAMOTIDINE 20 MG TABLET PO SCH ×2 (09:40→22:08)
[2018-02-26] MEDS: ASPIRIN EC 81 MG TABLET PO SCH (09:40)
[2018-02-26] MEDS: POTASSIUM CHLORIDE 20 MEQ TABLET PO SCH (09:40)
[2018-02-26] MEDS: DOCUSATE SODIUM 100 MG CAPSULE PO SCH ×2 (09:40→22:08)
[2018-02-26] MEDS: FUROSEMIDE 40 MG/4 ML VIAL IV SCH ×2 (09:41→18:12)
[2018-02-26] MEDS: CIPROFLOXACIN/DEXAMETHASONE OTIC SUSP 7.5 ML BOTTLE RIGHT EAR SCH ×2 (09:41→22:08)
[2018-02-26] MEDS: DOXAZOSIN 1 MG TABLET PO SCH (10:56)
[2018-02-26] MEDS ORDERED: FUROSEMIDE 20 MG/2 ML VIAL IV ONE (12:30)
[2018-02-26] MEDS: LOSARTAN 25 MG TABLET PO SCH (14:53)
[2018-02-26] MEDS: ENOXAPARIN 30 MG/0.3 ML SYRINGE SUBCUT SCH (18:12)
[2018-02-26] MEDS: GABAPENTIN 100 MG CAPSULE PO SCH (22:08)
[2018-02-26] MEDS: QUEtiapine 25 MG TABLET PO SCH (22:08)
[2018-02-27 03:05] LABS: Basophils % 0.7 % (0.0-0.8); Eosinophils % 0.9 % (0.00-10.9); Hematocrit 32.2 VOL% (35.7-47.0); Hemoglobin 11.2 GM/DL (12.0-16.0); Immature Granulocytes % 0.2 %; Immature Granulocytes Absolute 0.01 #; Lymphocytes # 0.6 10*3/uL (1.4-4.0); Lymphocytes % 12.8 % (21.3-54.2); Mean Corpuscular HGB Conc 34.8 GM/DL (32-36); Mean Corpuscular Hemoglobin 33 PG (27-34); Mean Corpuscular Volume 96.1 FL (87-102); Mean Platelet Volume 9.7 FL (9.6-12.0); Monocytes # 0.6 10*3/uL (0.11-0.8); Monocytes % 12.6 % (1.7-12.7); Neutrophils # 3.3 10*3/uL (1.4-7.4); Neutrophils % 72.8 % (38.7-73.9); Platelet Count 109 T/CUMM (130-400); Red Blood Count 3.35 MC/CUMM (3.8-5.5); Red Cell Distribution Width 13.8 % (9.3-17.3); White Blood Count 4.5 T/CUMM (4-12)
[2018-02-27 03:34] LABS: Albumin 3.2 G/DL (3.4-5.0); Bilirubin,Total 0.9 MG/DL (0.2-1.0); Calcium 8.4 MG/DL (8.5-10.1); Osmolality,Calculated 260.7 MOS/KG (273-304); Potassium 3.6 MMOL/L (3.5-5.1); Total Protein 6.2 G/DL (6.4-8.3)
[2018-02-27] MEDS: DOCUSATE SODIUM 100 MG CAPSULE PO SCH ×2 (10:38→21:22)
[2018-02-27] MEDS: POTASSIUM CHLORIDE 20 MEQ TABLET PO SCH (10:38)
[2018-02-27] MEDS: ATENOLOL 50 MG TABLET PO SCH ×2 (10:38→21:25)
[2018-02-27] MEDS: FUROSEMIDE 40 MG/4 ML VIAL IV SCH ×2 (10:38→17:17)
[2018-02-27] MEDS: ASPIRIN EC 81 MG TABLET PO SCH (10:38)
[2018-02-27] MEDS: DOXAZOSIN 1 MG TABLET PO SCH (10:38)
[2018-02-27] MEDS: FAMOTIDINE 20 MG TABLET PO SCH ×2 (10:38→21:22)
[2018-02-27] MEDS: LOSARTAN 25 MG TABLET PO SCH (10:38)
[2018-02-27] MEDS: NYSTATIN 500,000 UNIT/5 ML UDCUP SWISH/SWAL SCH ×4 (10:39→21:22)
[2018-02-27] MEDS: CALCIUM (CARBONATE)/VITAMIN D 600 MG-400 UNIT TABLET PO SCH (10:45)
[2018-02-27] MEDS: CIPROFLOXACIN/DEXAMETHASONE OTIC SUSP 7.5 ML BOTTLE RIGHT EAR SCH ×3 (11:00→21:23)
[2018-02-27] MEDS: MUPIROCIN 2% OINT 22 GM TUBE TOP SCH ×3 (17:18→21:23)
[2018-02-27] MEDS ORDERED: ENOXAPARIN 40 MG/0.4 ML SYRINGE SUBCUT SCH (21:00)
[2018-02-27] MEDS: GABAPENTIN 100 MG CAPSULE PO SCH (21:22)
[2018-02-27] MEDS: QUEtiapine 25 MG TABLET PO SCH (21:23)
[2018-02-28 05:35] LABS: Basophils # 0.1 10*3/uL (0.0-0.2); Basophils % 1.1 % (0.0-0.8); Eosinophils # 0.2 10*3/uL (0.0-0.87); Eosinophils % 3.8 % (0.00-10.9); Hematocrit 32.8 VOL% (35.7-47.0); Immature Granulocytes % 0.2 %; Immature Granulocytes Absolute 0.01 #; Lymphocytes # 0.8 10*3/uL (1.4-4.0); Lymphocytes % 17.9 % (21.3-54.2); Mean Corpuscular HGB Conc 33.5 GM/DL (32-36); Mean Corpuscular Hemoglobin 33 PG (27-34); Mean Corpuscular Volume 99.7 FL (87-102); Mean Platelet Volume 9.9 FL (9.6-12.0); Monocytes # 0.5 10*3/uL (0.11-0.8); Monocytes % 10.7 % (1.7-12.7); Neutrophils # 3.1 10*3/uL (1.4-7.4); Neutrophils % 66.3 % (38.7-73.9); Platelet Count 111 T/CUMM (130-400); Red Blood Count 3.29 MC/CUMM (3.8-5.5); White Blood Count 4.7 T/CUMM (4-12)
[2018-02-28 05:42] LABS: Calcium 8.6 MG/DL (8.5-10.1); Osmolality,Calculated 264.5 MOS/KG (273-304); Potassium 3.9 MMOL/L (3.5-5.1)
[2018-02-28 05:51] LABS: Calcium 8.8 MG/DL (8.5-10.1); Osmolality,Calculated 264.5 MOS/KG (273-304); Potassium 3.9 MMOL/L (3.5-5.1)
[2018-02-28] MEDS: NYSTATIN 500,000 UNIT/5 ML UDCUP SWISH/SWAL SCH ×3 (09:05→17:45)
[2018-02-28] MEDS: DOXAZOSIN 1 MG TABLET PO SCH (09:05)
[2018-02-28] MEDS: CALCIUM (CARBONATE)/VITAMIN D 600 MG-400 UNIT TABLET PO SCH (09:05)
[2018-02-28] MEDS: FUROSEMIDE 40 MG/4 ML VIAL IV SCH ×2 (09:06→16:38)
[2018-02-28] MEDS: POTASSIUM CHLORIDE 20 MEQ TABLET PO SCH (09:06)
[2018-02-28] MEDS: MUPIROCIN 2% OINT 22 GM TUBE TOP SCH (09:06)
[2018-02-28] MEDS: CIPROFLOXACIN/DEXAMETHASONE OTIC SUSP 7.5 ML BOTTLE RIGHT EAR SCH (09:06)
[2018-02-28] MEDS: DOCUSATE SODIUM 100 MG CAPSULE PO SCH (09:06)
[2018-02-28] MEDS: FAMOTIDINE 20 MG TABLET PO SCH (09:06)
[2018-02-28] MEDS: ATENOLOL 50 MG TABLET PO SCH (09:06)
[2018-02-28] MEDS: ASPIRIN EC 81 MG TABLET PO SCH (09:06)
[2018-02-28] MEDS: LOSARTAN 25 MG TABLET PO SCH (09:06)
[2018-02-28] MEDS ORDERED: PROPOFOL 200 MG/20 ML VIAL IV ONE (10:00)
[2018-02-28] MEDS ORDERED: LIDOCAINE 2% 5 ML VIAL ONE (10:00)
[2018-02-28] MEDS ORDERED: METOCLOPRAMIDE 10 MG/2 ML VIAL ONE (13:08)
[2018-02-28 16:26] VITALS: BP 124/58
== END 2018-02-28 20:25 | disposition home health service (06) | DRG 640 ==
LOC: N.GILAB 09:45 → N.TELEN 14:37
PROVIDERS: ADMIT Internal Medicine Gastroenterology; ATTEND Internal Medicine